=== PATIENT | female | born 1955 | race Caucasian/White ===

== ENCOUNTER 2019-03-21 12:51 | Inpatient (IN) | payer OTHER ==
[2019-03-21] MEDS ORDERED: Aspirin 81 mg CHEW TAB* 81 MG TAB.CHEW PO ONE (13:19)
--- NOTE | 2019-03-21 13:22 | ED ---
Dizziness - HPI Summary HPI Summary: This patient is a 63 year old F presenting to [facility] accompanied by her with a chief complaint of dizziness starting today while walking into [employer] and persisting while sitting up in her car. She states that she has been on Cipro and Flagyl for diverticulitis since 03/18/19. She reported feeling better until this episode occurred. She reports feeling anxious, nauseous, having chest pressure and feeling diaphoretic. She stated that while she was in the car her brought her a BP cuff and her BP was 90/60. She denies SOB, vomiting, diarrhea. She reports that lying down has helped to alleviate her lightheadedness and her CP. At the time of my evaluation, pt without any chest pain, no dizziness - states feels "much better lying down." Standing aggravates her symptoms. No cardiac hx except had svt ablation at [facility] many years ago. Pt had stress at this time as well. She currently lives with her and is retired. Patients medication reviewed this visit. 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 Negative: Vomiting, Diarrhea, SOB - Allergies/Home Medications Allergies/Adverse Reactions: Allergies Allergy/AdvReac Type Severity Reaction Status Date / Time Penicillins Allergy Intermediate Rash Verified 03/21/19 14:31 Home Medications: Home Medications Calcium Carbonate/Vitamin D3 [Calcium 500 + Vit D Caplet] 2 tab PO DAILY [History Confirmed 03/21/19] PMH/Surg Hx/FS Hx/Imm Hx Previously Healthy: Yes Endocrine/Hematology History: Denies: Hx Diabetes, Hx Thyroid Disease Cardiovascular History: Reports: Hx Hypertension, Hx Supraventricular Ventricular Tachycardia - s/p ablation Respiratory History: Denies: Hx Asthma, Hx Chronic Obstructive Pulmonary Disease (COPD) GI History: Denies: Hx Ulcer Musculoskeletal History: Denies: Hx Rheumatoid Arthritis, Hx Osteoporosis - OSTEOPENIA Psychiatric History: Reports: Hx Anxiety - Surgical History Surgical History: Yes Surgery Procedure, Year, and Place: Cardiac ablation for SVT 2000 Infectious Disease History: No Infectious Disease History: Denies: Hx Hepatitis, Hx Human Immunodeficiency Virus (HIV), History Other Infectious Disease, Traveled Outside the [place] in Last 30 Days - Family History Known Family History: Positive: Hypertension - paternal, Non-Contributory Negative: Cardiac Disease, Blood Disorder - Social History Occupation: Retired Lives: With Family - Alcohol Use: Occasionally Hx Substance Use: No Substance Use Type: Reports: None Hx Tobacco Use: No Smoking Status (MU): Never Smoked Tobacco Review of Systems Positive: Skin Diaphoresis Positive: Chest Pain, Other - POSITIVE: low BP at onset Negative: Shortness Of Breath Positive: Nausea. Negative: Vomiting, Diarrhea Neurological: Other - POSITIVE: dizziness aka lightheaded Positive: Anxious All Other Systems Reviewed And Are Negative: Yes Physical Exam - Summary Physical Exam Summary: Vital Signs Reviewed: Yes A+Ox3, no distress Eyes: Conjunctiva Clear, ENT: Hearing grossly normal mmoist, Neck: Positive: Supple Respiratory: Positive: No respiratory distress, No accessory muscle use + CTA throughout no w/r Cardiovascular: RRR nl s1, s2 no m/r CBT <2 sec abd soft + BS nt/nd no guarding, no distension Musculoskeletal Exam: OCONNOR x 4 without difficulty Strength Intact, ROM Intact Neurological: Positive: Alert, + sensation throughout Psychological: Positive: Normal Response To Family Skin: Positive: no rash, no ecchymosis Vital Signs On Initial Exam: Initial Vitals Temp Pulse Resp BP Pulse Ox 97.9 F 66 16 147/84 100 03/21/19 12:56 03/21/19 12:56 03/21/19 12:56 03/21/19 12:56 03/21/19 12:56 Diagnostics - Vital Signs Vital Signs Temp Pulse Resp BP Pulse Ox 03/21/19 12:56 97.9 F 66 16 147/84 100 - Laboratory Result Diagrams: 03/21/19 13:17 03/22/19 04:35 Lab Statement: Any lab studies that have been ordered have been reviewed, and results considered in the medical decision making process. - EKG 1258 Cardiac Rate: NL - 63 BPM EKG Rhythm: Sinus Rhythm Summary of EKG Findings: normal sinus rhythm at a rate of 63 BPM with inverted T waves in leads v3-v6 and inferior. Interpreted by Dr. Ferrer 1300 03/21/19. 1401 Cardiac Rate: NL - 56 BPM EKG Rhythm: Sinus Rhythm Summary of EKG Findings: Repeat EKG shows sinus rhythm with a rate of 56 BPM and slightly inverted QT waves with inverted T waves in V3-V6 and inferior. interpreted b Dr. Ferrer 1405 03/21/19. Re-Evaluation - Re-Evaluation First Eval Comment: Pt in room 15 at bedside. states no dizziness, chest "tingling" anterior, no radiation, no diaphoresis feeling anxious. elevated trop. will d/wdr alida mena. repeat EKG Second Eval Re-Evaluation Time: 14:12 Change: Unchanged Comment: Dr. Mena is at the bedside. repeated EKG withdeeper T waves. QTC slight increased - will give magnesium. will add on Mag Fourth Eval Comment: Pain improved with ntg. will go to Cath - Dr. 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 Pt states at present, lying supine feels well without chest discomfort. Pt without cardiac dx, + h/o HTN. Pt does report beig on cipro and flagyl for diverticulitis since Thu. on exam, slightly elevated bp - h/o same. non cocnering exam. EKg with deep inverted T wave inferionr V3-V5. will give ASA. pt closely monitor on tele. anticipate cards consult and admission - Diagnoses Provider Diagnoses: Non-STEMI (non-ST elevated myocardial infarction) - Provider Notifications Discussed Care Of Patient With: Carolina Salgado Time Discussed With Above Provider: 14:45 Instructed by Provider To: Admit As Inpatient Admit/Transition Orders Completed By ED Provider: Yes - Critical Care Time Critical Care Time: 30-74 min - 45 minutes Discharge - Sign-Out/Discharge Documenting (check all that apply): Patient Departure - admitted Patient Received Moderate/Deep Sedation with Procedure: No - Discharge Plan Condition: Guarded Disposition: ADMITTED TO [facility] - Billing Disposition and Condition Condition: GUARDED Disposition: Admitted to [facility] - Attestation Statements Document Initiated by Scribe: Yes Documenting Scribe: Matias Reynolds Provider For Whom Scribe is Documenting (Include Credential): Reena Ferrer MD Scribe Attestation: I, Matias Reynolds, scribed for Reena Ferrer MD on 03/24/19 at 1030. Scribe Documentation Reviewed: Yes Provider Attestation: The documentation as recorded by the scribe, Matias Reynolds accurately reflects the service I personally performed and the decisions made by me, Reena Ferrer MD Status of Scribe Document: Viewed Consult Consult: Consulted with Dr. Mena, Curriculum Development Manager, at 1357 about the plan of care and treatment of the pt. He will come to evaluate the pt for possible [place] [facility] [place] 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
[2019-03-21 13:31] LABS: ABS Basophils 0.1 10^3/ul (0-0.2); ABS Eosinophils 0.1 10^3/ul (0-0.6); ABS Lymphocytes 2.6 10^3/ul (1.0-4.8); ABS Monocytes 0.6 10^3/ul (0-0.8); Eosinophil % 1.9 %; Hematocrit 38 % (35-47); Hemoglobin 12.9 g/dL (12.0-16.0); Lymphocyte % 40.5 %; Mean Corpuscular HGB Conc 34 g/dL (31-36); Mean Corpuscular Hemoglobin 30 pg (27-31); Mean Corpuscular Volume 89 fL (80-97); Mean Platelet Volume 8.2 fL (7.4-10.4); Platelet Count 313 10^3/uL (150-450); Red Blood Count 4.26 10^6 /uL (3.70-4.87); Red Cell Distribution Width 12 % (10-15); White Blood Count 6.5 10^3/uL (3.5-10.8)
[2019-03-21] MEDS ORDERED: Nitroglycerin TAB 0.4 MG* 0.4 MG TAB ONE (13:45)
[2019-03-21] MEDS ORDERED: NS 0.9% 1000 ML** 1,000 ML IV ONE (13:46)
[2019-03-21] MEDS ORDERED: Nitroglycerin TAB 0.4 MG* 0.4 MG TAB SL ONE (13:46)
[2019-03-21 13:49] LABS: INR 1.21 (0.82-1.09)
[2019-03-21 13:50] LABS: ALT 11 U/L (7-52); AST 24 U/L (13-39); Albumin 4.1 g/dL (3.2-5.2); Albumin/Globulin Ratio 1.4 (1-3); Alkaline Phosphatase 67 U/L (34-104); Anion Gap 11 mmol/L (2-11); BUN/Creatinine Ratio 17.8 (8-20); Blood Urea Nitrogen 16 mg/dL (6-24); CO2 Carbon Dioxide 23 mmol/L (22-32); Calcium 9.6 mg/dL (8.6-10.3); Chloride 103 mmol/L (101-111); Creatine Kinase 106 U/L (10-223); EGFR African American 76.3 (>60); Globulin 2.9 g/dL (2-4); Glucose 103 mg/dL (70-100); Potassium 3.8 mmol/L (3.5-5.0); Sodium 137 mmol/L (135-145)
[2019-03-21 13:52] LABS: Troponin I 1.14 ng/mL (<0.04)
[2019-03-21 13:56] LABS: CKMB ng/mL 9.4 ng/mL (0.6-6.3)
[2019-03-21] MEDS ORDERED: Magnesium Sulfate 2 GM IV* 2 GM/50 ML BAG IVPB ONE (14:09)
[2019-03-21] MEDS ORDERED: Magnesium Sulfate 2 GM IV* 2 GM/50 ML BAG ONE (14:10)
[2019-03-21] MEDS ORDERED: Heparin VIAL(*) 5000 UNITS/ML VIAL (FIVE THOUSAND) IV PRN (14:12)
[2019-03-21] MEDS ORDERED: Heparin DRIP 25,000 UNITS(*) 25,000 UNITS/500 ML BAG IV SCH (14:15)
[2019-03-21] MEDS ORDERED: Diazepam TAB(*) 5 MG PO PRN (14:20)
[2019-03-21 14:21] LABS: Activated Partial Thrombo Time 37.7 seconds (26.0-38.0)
[2019-03-21] MEDS ORDERED: Ticagrelor* 90 MG TAB PO ONE ×2 (14:26→14:29)
[2019-03-21 14:28] LABS: Magnesium 1.7 mg/dL (1.9-2.7)
[2019-03-21] MEDS ORDERED: VERAPAMIL 2.5 MG/ML 2 ML VIAL ** 5 mg/2 ml ONE (14:33)
[2019-03-21] MEDS ORDERED: Heparin(*) 1000 UNIT/ML 10 ML VIAL CATH LAB IV ONE (14:33)
[2019-03-21] MEDS ORDERED: nitroGLYCERIN DRIP* 25,000 MCG/250 ML BTL ONE (14:33)
[2019-03-21] MEDS ORDERED: Iohexol 350 (CONTRAST) 200 ML MDV IV ONE ×2 (14:34)
[2019-03-21] MEDS ORDERED: Lidocaine 1% INJ* 10 MG/ML 30 ML SDV ONE (14:34)
[2019-03-21] MEDS ORDERED: Heparin 2 UNITS/ML IVPREMIX* 3,000 UNIT/1,500 ML BAG IV ONE (14:34)
[2019-03-21] MEDS ORDERED: fentaNYL* 50 MCG/ML 2 ML VIAL (100 MCG VIAL) ONE (14:58)
[2019-03-21] MEDS ORDERED: Midazolam* 1 MG/ML 5 ML VIAL (5 MG) ONE (14:58)
[2019-03-21] MEDS ORDERED: Ondansetron INJ* 2 MG/ML VIAL IV PRN (15:46)
[2019-03-21] MEDS ORDERED: Acetaminophen TAB* 325 MG PO PRN (15:46)
[2019-03-21] MEDS ORDERED: Nitroglycerin TAB 0.4 MG* 0.4 MG TAB SL PRN (15:46)
--- NOTE | 2019-03-21 15:49 | CONS ---
CARDIOLOGY CONSULTATION: DATE OF CONSULT: 03/21/19 INDICATION FOR CONSULTATION: NSTEMI, chest pain. HISTORY OF PRESENT ILLNESS: The patient is a 63-year-old woman with a history of hypertension who came to the emergency room because of chest pain and nausea. The patient was recently at [facility] last week with a diagnosis of diverticulitis. She was there with diarrhea and abdominal pain. No fevers. No blood in the stool. She was treated with antibiotics, was feeling quite well yesterday. Today, she was out with her at [facility] and suddenly felt weak and diaphoretic. She also had some degree of chest pain. At that time, they had a blood pressure cuff, her blood pressure was 90/ 50 and they came to the emergency room. On arrival to the emergency room, the patient was still complaining of her chest discomfort. She was given some sublingual nitroglycerin with improvement of her symptoms. Her initial troponin level was 1.14. Her initial EKG shows normal sinus rhythm with diffuse T-wave inversions in V2 through V6. A quick echocardiogram showed akinesis of the distal anterior wall. The patient has continued to have chest pain despite the nitroglycerin. She was started on heparin. The patient will proceed to cardiac catheterization. PAST MEDICAL HISTORY: Significant for hypertension. Recent diagnosis of diverticulitis as described above. PAST SURGICAL HISTORY: None. OUTPATIENT MEDICATIONS: Lisinopril as well as recent antibiotics of metronidazole and Cipro. ALLERGIES: PENICILLIN. FAMILY HISTORY: Could not be obtained as this is an urgent situation. SOCIAL HISTORY: Could not be obtained as this is an urgent situation. REVIEW OF SYSTEMS: Negative for fever and chills. Negative for changes in bowel and bladder, actually improvement in her bowels after her recent hospitalization. No change in weight. Other 12-point review is unremarkable. PHYSICAL EXAM: Height is 5 feet 6 inches, weight is 160 pounds. Temperature 97.9, heart rate is 60, blood pressure 115/74, respiratory rate is 20, oxygen saturation is 96% on room air. Sclerae anicteric. Oropharynx is pink without erythema. Carotids are 2+ without bruits. JVD is normal. Thyroid is normal. Cardiac Exam: S1, S2 without any murmurs, rubs, or gallops. Lungs are clear to auscultation. Abdomen is mildly tender. Normoactive bowel sounds. No hepatosplenomegaly. Extremities show no edema. She has 2+ pulses throughout. The patient is awake, alert, and oriented. She moves all 4 extremities equally. DIAGNOSTIC STUDIES/LAB DATA: CBC within normal limits. Chemistries within normal limits. BUN 16, creatinine 0.9. AST and ALT are normal. Troponin is 1.14. Echocardiogram: Brief echocardiogram as described above. IMPRESSION: This is a 63-year-old female with a recent episode of diverticulitis requiring antibiotics who came to the emergency room with nausea , chest pain, and diffuse EKG changes compared to 2008. Her initial echocardiogram shows severe akinesis to the distal anterior wall. The patient is diagnosed with acute coronary syndrome and [id number] myocardial infarction. RECOMMENDATIONS: The patient will be on heparin, aspirin, and Brilinta. The patient will be taken to the label sewer for further diagnosis. The risks and benefits of this were described in great detail and patient is willing to proceed. [id number]/CPS #: [id number] MTDD
[2019-03-21] MEDS ORDERED: NS 0.9% 1000 ML** 1,000 ML IV SCH (16:00)
--- NOTE | 2019-03-21 16:28 | ECHO ---
*[facility]* [place] [address] Fax #: [phone] Transthoracic Echocardiogram Patient: Kobe, Height: 66 in / Yudith Mackey 167.6 cm : 1955 Weight: 159.7 lb / Study Date: 03/21/2019 72.6 kg Age: 63 BP: 128 / 93 Gender: F BMI/BSA: 25.8 kg/m^2 HR: 67 bpm / 1.82 m^2 *Concrete Mason: * Denise Larios [facility] *Referring Physician: * Jarad Mena MD *Reading Physician: * Jarad Mena MD Indications: Chest Pain, unspecified. History: Supraventricular tachycardia. Risk factors: Hypertension. Conclusions Summary: 1. Left ventricle: Systolic function is mildly to moderately reduced. The estimated ejection fraction is 40-45%. See wall motion abnormalities below. 2. Right ventricle: Systolic function is normal. Systolic pressure is mildly increased. 3. Mitral valve: There is trace regurgitation. 4. Aortic valve: There is no significant regurgitation. 5. Tricuspid valve: There is moderate regurgitation. 6. Pericardium, extracardiac: There is no significant pericardial effusion. 7. Pulmonary arteries: Systolic pressure is mildly increased. 8. Study data: No prior study is available for comparison. Study data: Transthoracic echocardiogram. Procedure: Transthoracic echocardiography was performed. Image quality was good. Complete 2D, spectral Doppler, and color flow Doppler. Location: Emergency department. Patient status: Inpatient. Patient room number: 15. No prior study is available for comparison. Study status: RAMO. Rhythm: Normal sinus rhythm. Findings Left ventricle: The cavity size is normal. Wall thickness is normal. Systolic function is mildly to moderately reduced. The estimated ejection fraction is 40-45%. Regional wall motion abnormalities: Hypokinesis of the apicalanteroseptal myocardium. Hypokinesis of the apicalinferoseptal myocardium. Hypokinesis of distal posterior myocardium. Hypokinesis of the apicallateral myocardium. Severe hypokinesis of the apical anterior and apical myocardium; moderate hypokinesis of the mid anteroseptal, apical inferior, apical septal, and apical lateral myocardium. Doppler parameters appear abnormal. Right ventricle: The cavity size is normal. Systolic function is normal. Systolic pressure is mildly increased. Left atrium: The atrium is mildly dilated. Right atrium: The atrium is normal in size. Mitral valve: The leaflets are mildly thickened. There is no evidence of stenosis. There is trace regurgitation. Aortic valve: The valve is trileaflet. There is no significant regurgitation. Tricuspid valve: The leaflets are normal thickness. There is no evidence of stenosis. There is moderate regurgitation. Pulmonic valve: The leaflets are normal thickness. There is no evidence of stenosis. There is mild regurgitation. Aorta: Aortic arch: The aortic arch is appears normal. The aortic root is not dilated. Pericardium: There is no significant pericardial effusion. Pulmonary arteries: The main pulmonary artery is normal-sized. Systolic pressure is mildly increased. Systemic veins: Inferior vena cava: The vessel is normal in size. The respirophasic diameter changes are in the normal range (>= 50%). Measurements Left ventricle Value Ref Aortic valve Value Ref ADRIAN, LAX 4.8 cm 3.8 - 5.2 Ericka diam, ED 2.0 cm ----- ESD, LAX 2.9 cm 2.2 - 3.5 Peak v, S 0.96 m/sec ----- FS, LAX 39 % 27 - 45 VTI, S 24.4 cm ----- PW, ED, LAX (H) 1.0 cm 0.6 - 0.9 Mean grad, S 2.0 mm Hg ----- EF 70 % 54 - 74 Peak grad, S 4.0 mm Hg ----- E', lat ericka, TDI (L) 3.7 cm/sec >=10.0 E/e', lat ericka, 20 Mitral valve Value Ref TDI Peak E 0.75 m/sec ----- E', med ericka, TDI (L) 5.3 cm/sec >=7.0 Peak A 0.67 m/sec --- -- E/e', med ericka, 14 Decel time 164 ms ----- TDI Peak grad, D 2.3 mm Hg ----- E', avg, TDI 4.5 cm/sec Peak E/A ratio 1.1 ----- E/e', avg, TDI (H) 17 <=14 Pulmonic valve Value Ref LVOT Value Ref Peak v, S 0.54 m/sec ----- Peak nas, S 0.63 m/sec Peak grad, S 1.0 mm Hg ----- Mean grad, S 1 mm Hg Tricuspid valve Value Ref Ventricular septum Value Ref TR peak v (H) 2.9 m/sec <=2.8 IVS, ED 0.9 cm 0.6 - 0.9 Peak RV-RA grad, S 34 mm Hg ----- Right ventricle Value Ref Aortic root Value Ref ADRIAN, LAX 1.7 cm Root diam 3.2 cm <4.0 ADRIAN minor ax, A4C 3.0 cm 1.9 - 3.5 mid Aortic arch Value Ref Pressure, S 37 mm Hg Arch diam 2.9 cm ----- Left atrium Value Ref Decending aorta Value Ref AP dim, ES 2.80 cm 2.70 - Manoj peak nas 0.46 m/sec ----- 3.80 ML dim, A4C 4.6 cm Pulmonary artery Value Ref SI dim, A4C 5.6 cm Pressure, S 36.0 mm Hg ----- Vol/bsa, ES, A/L (H) 36 ml/m^2 16 - 34 Inferior vena cava Value Ref Right atrium Value Ref Diam 2.0 cm ----- SI dim, ES 5.2 cm 3.4 - 5.3 ML dim, ES, A4C 3.7 cm 2.6 - 4.4 Estimated RAP 3 mm Hg Legend: (L) and (H) haseeb values outside specified reference range. Prepared and electronically signed by Jarad Mena MD 03/21/2019 16:28
[2019-03-21 16:38] LABS: Cholesterol 212 mg/dL; LDL Cholesterol 115 mg/dL; Triglycerides 92 mg/dL
[2019-03-21] MEDS ORDERED: Atorvastatin* 80 MG TAB PO SCH (17:00)
[2019-03-21 17:05] LABS: Creatine Kinase 152 U/L (10-223)
[2019-03-21 17:11] LABS: CKMB ng/mL 19.2 ng/mL (0.6-6.3)
[2019-03-21 17:12] LABS: Troponin I 2.24 ng/mL (<0.04)
[2019-03-21] MEDS: Captopril TAB* 12.5 MG PO SCH ×2 (17:52→20:37)
[2019-03-21] MEDS: Propranolol TAB* 10 MG PO SCH (20:37)
[2019-03-21] MEDS: Ticagrelor* 90 MG TAB PO SCH (20:37)
--- NOTE | 2019-03-21 21:28 | CATH ---
CATH REPORT: DATE OF PROCEDURE: 03/21/19 - ROOM #[id number] PROCEDURES: Right radial artery access with ultrasound guidance, bilateral selective coronary cineangiography, left heart catheterization, left ventriculography. HISTORY: A 63-year-old woman presenting with severe precordial burning chest pain with new precordial and inferior T-wave inversion without ST elevation, and low level troponin elevation, all consistent with ACS with non-ST elevation infarct or takotsubo syndrome. PROCEDURE ACCESS: Right radial artery sheath 6F slender. MEDICATIONS: 1. Subcu lidocaine. 2. IV Versed. 3. IV fentanyl. 4. Heparin 300 mcg. 5. Verapamil 3 mg IA. No additional heparin as she received 4000 units in the ER. DIAGNOSTIC CATHETER: 5F TIG4, 5F pigtail. HEMODYNAMICS: Initial AO: 105/64. LV post coronary angiography, 111/51-22, no aortic valve gradient on pullback. ANGIOGRAPHY: Left main: The left main is smooth, normal in size, has no stenosis. LAD: The LAD is moderate to large, extends to the apex, it has WILBERT-3 flow, supplies a large mid to diagonal. There is no angiographic evidence of stenosis , plaque rupture or thrombus. There is no myocardial bridging. Circumflex: The circumflex is large, not dominant, with a large bifurcated ramus, and ends with two moderate to small posterolaterals. The circumflex has no stenosis. RCA: The RCA is dominant, smooth, large, with a moderate PDA and posterolateral , the RCA has minimal irregularity at the acute margin, has no stenosis. LV Gram: There is akinesis of the distal half of the anterolateral wall, apex and inferoapical segments all consistent with takotsubo's, estimated LVEF 40%. CONCLUSION: 1. No obstructive coronary artery disease. 2. LV systolic dysfunction as above. 3. Elevated LVDP. 4. Successful right radial artery access. 5. Takotsubo's cardiomyopathy. [id number]/[facility] #: [id number]
[2019-03-21 22:13] LABS: Creatine Kinase 131 U/L (10-223)
[2019-03-21 22:18] LABS: CKMB ng/mL 14.5 ng/mL (0.6-6.3)
[2019-03-21 22:22] LABS: Troponin I 1.57 ng/mL (<0.04)
[2019-03-22 05:00] LABS: Creatine Kinase 124 U/L (10-223)
[2019-03-22 05:08] LABS: Troponin I 0.96 ng/mL (<0.04)
[2019-03-22] MEDS: Ticagrelor* 90 MG TAB PO SCH (08:49)
[2019-03-22] MEDS: Propranolol TAB* 10 MG PO SCH ×2 (08:49→21:06)
[2019-03-22] MEDS: Lisinopril TAB* 5 MG PO SCH (08:55)
[2019-03-22] MEDS ORDERED: Aspirin 81 mg CHEW TAB* 81 MG TAB.CHEW PO SCH (09:00)
[2019-03-22] MEDS ORDERED: Lisinopril TAB* 5 MG PO SCH (09:00)
[2019-03-22 09:32] LABS: INR 1.26 (0.82-1.09)
--- NOTE | 2019-03-22 10:05 | PN ---
<Gely Grant - Last Filed: 03/22/19 10:44> Subjective Date of Service: 03/22/19 - Takotsubo Cardiomyopathy, troponin elevation Interval History: Patient states she did not sleep well last night due to alarms, she adds she was anxious. She does admit to intermittent c/o chest pain described as a " wave of burning" she states episodes have been intermittent and last anywhere from 1-10 minutes. Last episode was prior to walking into her room. No c/o shortness of breath, dizziness or lightheadedness/palpitations. Medications Active Medications: Acetaminophen (Tylenol Tab*) 650 mg PO Q4H PRN PRN Reason: HEADACHE/PAIN Last Admin: 03/22/19 01:47 Dose: 650 mg Aspirin (Aspirin 81 Mg Chew Tab*) 81 mg PO DAILY [facility] Last Admin: 03/22/19 08:50 Dose: 81 mg Atorvastatin Calcium (Lipitor*) 40 mg PO 1700 [facility] Diazepam (Valium Tab(*)) 5 mg PO ONCE PRN PRN Reason: score caller to [facility] Heparin Sodium (Porcine) (Heparin Vial(*)) 0 units IV .FOR BOLUSES PRN PRN Reason: HEPARIN DRIP BOLUSES Last Admin: 03/21/19 14:28 Dose: 4,000 units Lisinopril (Prinivil Tab*) 2.5 mg PO DAILY [facility] Last Admin: 03/22/19 08:55 Dose: 2.5 mg Nitroglycerin (Nitroglycerin Tab 0.4 Mg*) 0.4 mg SL Q5M PRN PRN Reason: ANGINA Ondansetron HCl (Zofran Inj*) 4 mg IV Q4H PRN PRN Reason: NAUSEA Propranolol HCl (Inderal Tab*) 10 mg PO BID [facility] Last Admin: 03/22/19 08:49 Dose: 10 mg Ticagrelor (Brilinta*) 90 mg PO BID [facility] Last Admin: 03/22/19 08:49 Dose: 90 mg Objective Vital Signs: Temp Pulse Resp BP Pulse Ox 98.3 F 71 25 118/80 97 03/22/19 07:51 03/22/19 08:00 03/22/19 08:00 03/22/19 08:00 03/22/19 08:00 Oxygen Devices in Use Now: None Appearance: well nourished, A+O x3, cooperative with exam, NAD her is at her bedside. Eyes: No Scleral Icterus Ears/Nose/Mouth/Throat: NL Teeth, Lips, Gums, Clear Oropharnyx, Mucous Membranes Moist Neck: NL Appearance and Movements; NL JVP Respiratory: Symmetrical Chest Expansion and Respiratory Effort, Clear to Auscultation Cardiovascular: NL Sounds; No Murmurs; No JVD, No Edema Abdominal: NL Sounds; No Tenderness; No Distention Skin: No Rash or Ulcers Neurological: Alert and Oriented x 3 Lines/Tubes/Other Access: Clean, Dry and Intact PICC Line Laboratory Results: 03/21/19 13:17 03/21/19 13:17 INR (Anticoag Therapy) 1.26 (0.82-1.09) H 03/22/19 08:50 APTT 37.7 seconds (26.0-38.0) 03/21/19 13:17 Total Bilirubin 0.40 mg/dL (0.2-1.0) 03/21/19 13:17 AST 24 U/L (13-39) 03/21/19 13:17 ALT 11 U/L (7-52) 03/21/19 13:17 Alkaline Phosphatase 67 U/L (34-104) 03/21/19 13:17 CK-MB (CK-2) 12.0 ng/mL (0.6-6.3) H 03/22/19 04:35 Total Protein 7.0 g/dL (6.4-8.9) 03/21/19 13:17 Albumin 4.1 g/dL (3.2-5.2) 03/21/19 13:17 Globulin 2.9 g/dL (2-4) 03/21/19 13:17 Albumin/Globulin Ratio 1.4 (1-3) 03/21/19 13:17 Triglycerides 92 mg/dL 03/21/19 13:17 Cholesterol 212 mg/dL 03/21/19 13:17 LDL Cholesterol 115 mg/dL 03/21/19 13:17 HDL Cholesterol 79.0 mg/dL 03/21/19 13:17 03/21/19 03/21/19 03/21/19 13:17 16:30 21:47 Troponin I 1.14 H* 2.24 H* 1.57 H* 03/22/19 04:35 Troponin I 0.96 H* Laboratory Results - last 24 hr 03/21/19 03/21/19 03/21/19 13:17 13:17 13:17 WBC 6.5 RBC 4.26 Hgb 12.9 Hct 38 MCV 89 MCH 30 MCHC 34 RDW 12 Plt Count 313 MPV 8.2 Neut % (Auto) 46.6 Lymph % (Auto) 40.5 Mcdonald % (Auto) 9.9 Eos % (Auto) 1.9 Baso % (Auto) 1.1 Absolute Neuts (auto) 3.0 Absolute Lymphs (auto) 2.6 Absolute Monos (auto) 0.6 Absolute Eos (auto) 0.1 Absolute Basos (auto) 0.1 Absolute Nucleated RBC 0.0 Nucleated RBC % 0.0 INR (Anticoag Therapy) 1.21 H APTT 37.7 Sodium 137 Potassium 3.8 Chloride 103 Carbon Dioxide 23 Anion Gap 11 BUN 16 Creatinine 0.90 Est GFR ( Amer) 76.3 Est GFR (Non-Af Amer) 63.0 BUN/Creatinine Ratio 17.8 Glucose 103 H Calcium 9.6 Magnesium 1.7 L Total Bilirubin 0.40 AST 24 ALT 11 Alkaline Phosphatase 67 Total Creatine Kinase 106 CK-MB (CK-2) 9.4 H Troponin I 1.14 H* Total Protein 7.0 Albumin 4.1 Globulin 2.9 Albumin/Globulin Ratio 1.4 Triglycerides 92 Cholesterol 212 LDL Cholesterol 115 HDL Cholesterol 79.0 03/21/19 03/21/19 03/22/19 16:30 21:47 04:35 WBC RBC Hgb Hct MCV MCH MCHC RDW Plt Count MPV Neut % (Auto) Lymph % (Auto) Mcdonald % (Auto) Eos % (Auto) Baso % (Auto) Absolute Neuts (auto) Absolute Lymphs (auto) Absolute Monos (auto) Absolute Eos (auto) Absolute Basos (auto) Absolute Nucleated RBC Nucleated RBC % INR (Anticoag Therapy) APTT Sodium Potassium Chloride Carbon Dioxide Anion Gap BUN Creatinine Est GFR ( Amer) Est GFR (Non-Af Amer) BUN/Creatinine Ratio Glucose Calcium Magnesium Total Bilirubin AST ALT Alkaline Phosphatase Total Creatine Kinase 152 131 124 CK-MB (CK-2) 19.2 H 14.5 H 12.0 H Troponin I 2.24 H* 1.57 H* 0.96 H* Total Protein Albumin Globulin Albumin/Globulin Ratio Triglycerides Cholesterol LDL Cholesterol HDL Cholesterol 03/22/19 08:50 WBC RBC Hgb Hct MCV MCH MCHC RDW Plt Count MPV Neut % (Auto) Lymph % (Auto) Mcdonald % (Auto) Eos % (Auto) Baso % (Auto) Absolute Neuts (auto) Absolute Lymphs (auto) Absolute Monos (auto) Absolute Eos (auto) Absolute Basos (auto) Absolute Nucleated RBC Nucleated RBC % INR (Anticoag Therapy) 1.26 H APTT Sodium Potassium Chloride Carbon Dioxide Anion Gap BUN Creatinine Est GFR ( Amer) Est GFR (Non-Af Amer) BUN/Creatinine Ratio Glucose Calcium Magnesium Total Bilirubin AST ALT Alkaline Phosphatase Total Creatine Kinase CK-MB (CK-2) Troponin I Total Protein Albumin Globulin Albumin/Globulin Ratio Triglycerides Cholesterol LDL Cholesterol HDL Cholesterol Diagnostic Imaging: *[facility] [place] [address] Fax #: [phone] Transthoracic Echocardiogram Patient: Kobe, Height: 66 in / Yudith J 167.6 cm : 1955 Weight: 159.7 lb / Study Date: 03/21/2019 72.6 kg Age: 63 BP: 128 / 93 Gender: F BMI/BSA: 25.8 kg/m^2 HR: 67 bpm / 1.82 m^2 *Motorcycle Sales Associate: * Denise Larios RD RDMS *Referring Physician: * Jarad Mena MD *Reading Physician: * Jarad Mena MD Indications: Chest Pain, unspecified. History: Supraventricular tachycardia. Risk factors: Hypertension. Conclusions Summary: 1. Left ventricle: Systolic function is mildly to moderately reduced. The estimated ejection fraction is 40-45%. See wall motion abnormalities below. 2. Right ventricle: Systolic function is normal. Systolic pressure is mildly increased. 3. Mitral valve: There is trace regurgitation. 4. Aortic valve: There is no significant regurgitation. 5. Tricuspid valve: There is moderate regurgitation. 6. Pericardium, extracardiac: There is no significant pericardial effusion. 7. Pulmonary arteries: Systolic pressure is mildly increased. 8. Study data: No prior study is available for comparison. This report is only to be considered final once signed by the Provider(s) as displayed in the "<Electronically Signed by >" field (s). Absence of a signature indicates the report is in a draft status and still needs to be finalized. In the event this document was created by someone other than the signing Provider, the individual initiating the document will be listed in the "Entered by:" or "Dictated by:" badillo. Cardiac Catheterization Report YUDITH WINSLOW [id number] 03/21/19 Per proceedure note performed by Dr. Salgado. LV Gram: There is akinesis of the distal half of the anterolateral wall, apex and inferoapical segments all consistent with takotsubo's, estimated LVEF 40%. CONCLUSION: 1. No obstructive coronary artery disease. 2. LV systolic dysfunction as above. 3. Elevated LVDP. 4. Successful right radial artery access. 5. Takotsubo's cardiomyopathy. EKG Data: 03/22/2019; Sinus rhythm rate 60 diffuse TW inversion comparable to prior ECG. Telemetry; Sinus rhythm rate 60's with occasional PVC's.No VT. Assessment/Plan #1 C/o Chest pain, Dizziness. Troponin peaked at 2.24 on 03/21/2019. Given abnormal EKG findings and presentation she was taken to yard laborer. Per report there was no evidence of obstructive CAD. LVEF 40%. + apical ballooning consistent with Takotosubo cardiomyopathy. She is on Propanolol 10mg Po BID, Captopril transitioned to Lisinopril 2.5mg/day. She reports historically being on Lisinopril 5mg/day. Will monitor on current therapy. Stop DAPT. She has had recurrent chest pain however, troponin is trending down and diffuse TW inversion is consistant with prior ECG. Will continue to monitor on telemetry. 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 Will r/o pheochromocytoma. Urine testing is a send out test. #2 h/o HTN historically in Lisinopril and Propanolol. Currently patient is normotensive. #3 Recent Diverticulitis 03/18/2019. I spoke with the patient's pharmacy [facility] [employer]. She was prescribed Cipro 500mg PO BID x10 days and Flagyl 500mg PO TID on 03/19/2019 with stop date being 03/29/2019. Will resume medications. No recurrent c/o abdominal pain or diarrhea since treatment was started per patient. #4 h/o PVC's; Patient has had occasional PVC on telemetry, no VT. On bblocker therapy #5 Disposition pending course. Will transfer patient to telemetry. Resume Cipro and Flagyl for recent diverticulitis. I spoke with Dr. Salgado who would like to observe patient another day and who agrees with plan of care. Attending: Carolina Salgado <Carolina Salgado - Last Filed: 03/22/19 14:09> Subjective Interval History: THIS pM NO CHEST PAIN/BURNING; FEELS GOOD. wALKED IN [place] W/O problem. reviewed tele 72 hrs . Medications Active Medications: Acetaminophen (Tylenol Tab*) 650 mg PO Q4H PRN PRN Reason: HEADACHE/PAIN Last Admin: 03/22/19 01:47 Dose: 650 mg Atorvastatin Calcium (Lipitor*) 40 mg PO 1700 [facility] Ciprofloxacin (Cipro Tab*) 500 mg PO Q12HR [facility]; Protocol Stop: 03/29/19 23:59 Diazepam (Valium Tab(*)) 5 mg PO ONCE PRN PRN Reason: score caller to [facility] Lisinopril (Prinivil Tab*) 2.5 mg PO DAILY [facility] Last Admin: 03/22/19 08:55 Dose: 2.5 mg Metronidazole (Flagyl) 500 mg PO Q8H [facility] Stop: 03/29/19 23:59 Last Admin: 03/22/19 11:12 Dose: 500 mg Nitroglycerin (Nitroglycerin Tab 0.4 Mg*) 0.4 mg SL Q5M PRN PRN Reason: ANGINA Ondansetron HCl (Zofran Inj*) 4 mg IV Q4H PRN PRN Reason: NAUSEA Propranolol HCl (Inderal Tab*) 10 mg PO BID [facility] Last Admin: 03/22/19 08:49 Dose: 10 mg Objective Vital Signs: Temp Pulse Resp BP Pulse Ox 97.5 F 60 20 115/68 100 03/22/19 12:00 03/22/19 12:00 03/22/19 12:00 03/22/19 12:00 03/22/19 12:00 Laboratory Results: 03/21/19 13:17 03/21/19 13:17 INR (Anticoag Therapy) 1.26 (0.82-1.09) H 03/22/19 08:50 APTT 37.7 seconds (26.0-38.0) 03/21/19 13:17 Total Bilirubin 0.40 mg/dL (0.2-1.0) 03/21/19 13:17 AST 24 U/L (13-39) 03/21/19 13:17 ALT 11 U/L (7-52) 03/21/19 13:17 Alkaline Phosphatase 67 U/L (34-104) 03/21/19 13:17 CK-MB (CK-2) 12.0 ng/mL (0.6-6.3) H 03/22/19 04:35 Total Protein 7.0 g/dL (6.4-8.9) 03/21/19 13:17 Albumin 4.1 g/dL (3.2-5.2) 03/21/19 13:17 Globulin 2.9 g/dL (2-4) 03/21/19 13:17 Albumin/Globulin Ratio 1.4 (1-3) 03/21/19 13:17 Triglycerides 92 mg/dL 03/21/19 13:17 Cholesterol 212 mg/dL 03/21/19 13:17 LDL Cholesterol 115 mg/dL 03/21/19 13:17 HDL Cholesterol 79.0 mg/dL 03/21/19 13:17 03/21/19 03/21/19 03/21/19 13:17 16:30 21:47 Troponin I 1.14 H* 2.24 H* 1.57 H* 03/22/19 04:35 Troponin I 0.96 H*
[2019-03-22] MEDS: metroNIDAZOLE * 500 MG TABLET PO SCH ×2 (11:12→19:44)
[2019-03-22] MEDS: Atorvastatin* 40 MG TAB PO SCH (16:04)
[2019-03-22 20:52] LABS: Anion Gap 10 mmol/L (2-11); BUN/Creatinine Ratio 14.6 (8-20); Blood Urea Nitrogen 12 mg/dL (6-24); CO2 Carbon Dioxide 21 mmol/L (22-32); Calcium 8.7 mg/dL (8.6-10.3); Chloride 108 mmol/L (101-111); EGFR African American 84.9 (>60); EGFR Non-African American 70.2 (>60); Glucose 98 mg/dL (70-100); Potassium 3.8 mmol/L (3.5-5.0); Sodium 139 mmol/L (135-145)
[2019-03-22] MEDS: Ciprofloxacin TAB* 500 MG PO SCH (21:06)
[2019-03-22] MEDS: Simethicone TAB* 80 MG TAB.CHEW PO PRN (21:06)
[2019-03-23] MEDS: metroNIDAZOLE * 500 MG TABLET PO SCH ×3 (03:17→20:13)
[2019-03-23] MEDS ORDERED: Morphine 4 MG/ML VIAL (1 ml) 4 MG/ML VIAL IV PRN (04:56)
[2019-03-23] MEDS: Simethicone TAB* 80 MG TAB.CHEW PO PRN ×2 (05:33→20:15)
[2019-03-23] MEDS: Lisinopril TAB* 5 MG PO SCH (08:09)
[2019-03-23] MEDS: Ciprofloxacin TAB* 500 MG PO SCH ×2 (08:09→20:13)
[2019-03-23] MEDS: Propranolol TAB* 10 MG PO SCH ×2 (08:10→20:13)
[2019-03-23] MEDS: Atorvastatin* 40 MG TAB PO SCH (15:52)
[2019-03-23] MEDS ORDERED: Metoprolol Tartrate TAB* 25 MG PO SCH (21:00)
[2019-03-23] MEDS: Famotidine TAB* 20 MG PO SCH (21:19)
[2019-03-24] MEDS: Simethicone TAB* 80 MG TAB.CHEW PO PRN ×2 (03:13→09:05)
[2019-03-24] MEDS: metroNIDAZOLE * 500 MG TABLET PO SCH ×2 (03:13→11:24)
[2019-03-24] MEDS ORDERED: Metoprolol Tartrate TAB* 25 MG PO SCH (09:00)
[2019-03-24] MEDS: Lisinopril TAB* 5 MG PO SCH (09:03)
[2019-03-24] MEDS: Ciprofloxacin TAB* 500 MG PO SCH (09:04)
[2019-03-24] MEDS: Famotidine TAB* 20 MG PO SCH (09:04)
--- NOTE | 2019-03-24 11:54 | DS ---
AMENDED REPORT NOW INCLUDES DATES OF ADMISSION/DISCHARGE AND DESIGNATED COSIGNER CC: [facility] * DISCHARGE SUMMARY: DATE OF ADMISSION: 03/21/19 DATE OF DISCHARGE: 03/24/19 ATTENDING PHYSICIAN: Carolina Salgado MD, Cardiology.* (DICTATED BY ZOË GUILLEN NP) PRIMARY PHYSICIAN: Historically, no one; however, she will follow up with [facility] on 03/29. PRIMARY AFTERNOON BABYSITTER: Will now be Dr. Jarad Mena. ADMITTING DIAGNOSES: 1. Complaints of chest pain with anterior wall akinesis and troponinemia. 2. Recently diagnosed diverticulitis, on Flagyl and Cipro. 3. History of hypertension. 4. History of atrioventricular elaina reentry tachycardia ablation. 5. History of premature ventricular contractions. DISCHARGE DIAGNOSES: 1. Takotsubo cardiomyopathy, LVEF 40% to 45%; troponin peaked on 03/21/19 at 2.24. Per cardiac cath report on 03/21/19, the patient had no obstructive coronary artery disease with akinesis of the distal half of the anterior wall, apex and inferoapical segments consistent with Takotsubo cardiomyopathy, on Lopressor, lisinopril therapy, and atorvastatin therapy. 2. History of hyperlipidemia, now on Lipitor 40 mg p.o. q.h.s. LDL this admission was 115. The patient will need followup fasting lipid and liver function tests in 6 to 8 weeks' time. 3. History of hypertension. The patient is normotensive on current therapy including lisinopril 2.5 mg a day and Lopressor 12.5 mg p.o. b.i.d. 4. Recent diagnosis of diverticulitis. The patient is on Cipro and Flagyl as directed until 03/29/19. She has medications at home, thus does not need a prescription. PROCEDURES PERFORMED: The patient underwent heart catheterization by Dr. Salgado on 03/21/19. Per procedure report, she had a 6-Turkmen right radial artery sheath catheter placed for access. 1. Left main; the left main is smooth, normal in size, no stenosis. 2. LAD; moderate to large, extends to the apex. WILBERT flow 3. There was no angiographic evidence of stenosis, plaque rupture or thrombus. No myocardial bridging. 3. Left circumflex is large, not dominant with large bifurcated ramus and ends with 2 moderate to small posterolaterals, circumflex has no stenosis. 4. Right coronary artery is dominant, smooth, large with a moderate PDA and posterolateral. The RCA has minimal irregularity at the acute margin and no stenosis. 5. LV gram. There is akinesis of the distal half of the anterior wall, apex and inferoapical segments consistent with Takotsubo cardiomyopathy, LVEF 40%. COMPLICATIONS: None. COURSE OF HOSPITAL STAY: This is a pleasant 63-year-old female patient, who has a history of AVNRT with prior ablation remotely at [facility] , reported PVCs, hypertension, who was recently diagnosed with diverticulitis on 03/18/19 and prescribed Flagyl and Cipro therapy. She presented to [facility] on 03/21/19 according to our medical records due to complaints of chest pain and nausea. She was seen by Dr. Mena due to diffuse T-wave inversions in V2 through V6. Limited echo was updated, which revealed akinesis of the distal anterior wall and she continued to have chest pain despite administration of nitroglycerin and IV heparin therapy, thus she was taken to the sleep lab technologist where she underwent the above- mentioned procedure. Post procedure , was transferred to the ICU. Troponin peaked on 03/21/19 at 2.24 and has continued to trend down. She did have hypomagnesium, which was replaced. Her LDL was 115. Cardiac catheterization per report was consistent with Takotsubo cardiomyopathy. She was started on Lopressor therapy; however, had nocturnal bradycardia, thus dose was reduced to 12.5 mg p.o. b.i.d. Lisinopril was also reduced to 2.5 mg daily due to relatively low systolic blood pressure. Current vital signs: Temperature is 97.8, pulse 70, respirations 21, oxygenation 99% on room air, blood pressure 108/70. There is no morning blood work to review today. She remains in sinus rhythm with occasional VPCs, no VT. Of note, she did have consistent INR elevation during this hospital stay of unknown etiology. She will need a followup with [facility] in the next 7 to 10 days to explore etiology of coagulopathy. Given no obstructive coronary artery disease, she is not being sent home on antiplatelet therapy. LVEF was 40 % to 45%. She is compensated on physical examination. She continued to have complaints of burning sternal chest pain that appeared to be atypical and cardiac enzyme was trending down, thus she was started on Protonix therapy. She reports resolvement of chest pain since medication was initiated. She is stable and will be discharged home today. Medications were faxed to her pharmacy , which is [facility] in [place]. She does not need a prescription for Cipro and Flagyl given it was prescribed on the 03/18/19 for a 10-day course of therapy for recent diverticulosis. She has had no complaints of diarrhea or abdominal pain during this hospital stay. Pending no complications, she will be discharged home later today. She did have urine catecholamine and metanephrine testing, which is currently pending that will need to be followed up in outpatient evaluation. DISCHARGE MEDICATIONS: Includes: 1. Lipitor 40 mg p.o. q.h.s. 2. Cipro 500 mg p.o. b.i.d., end date is 03/29/19. 3. Famotidine 20 mg a day. 4. Lisinopril 2.5 mg a day. 5. Lopressor 12.5 mg p.o. b.i.d. 6. Flagyl 500 mg p.o. q.12 h., end date 03/29/19. 7. Tylenol 650 mg p.o. q.4h., p.r.n. OUTPATIENT BLOOD WORK: She will need a fasting lipid and hepatic function test in 6 to 8 weeks' time. This may be ordered at followup appointment on 03/29/19. Disposition: Home in stable condition. FOLLOWUP APPOINTMENT: 1. The patient is to see Dr. Jarad Mena on 03/29/19 at 2 p.m. at our medical office building. 2. She is to establish primary care with [facility] on 03/29/19 at 9 a.m. We will discuss plan of care with Dr. Carolina Salgado and if agreeable, we will discharge home later today in stable condition. ZOË GUILLEN NP [id number]/[facility] #: [id number]
[2019-03-24 12:06] VITALS: BP 105/66
[2019-03-26 15:37] LABS: Urine Collection Duration 24 h; Urine Total Metanephrines 722 mcg/24 h
== END 2019-03-24 12:45 | disposition home or self-care (01) | DRG 287 ==
LOC: ED 12:51 → CHICATH 14:44 → ICU 16:15 → MEDTELE 03-22 11:46
PROVIDERS: ADMIT Internal Medicine Cardiovascular Disease; ATTEND Internal Medicine Cardiovascular Disease
PROC: B211YZZ Fluoroscopy of Multiple Coronary Arteries using Other Contrast (ICD-10-PCS; 2019-03-21)
PROC: B215YZZ Fluoroscopy of Left Heart using Other Contrast (ICD-10-PCS; 2019-03-21)
PROC: 4A023N7 Measurement of Cardiac Sampling and Pressure, Left Heart, Percutaneous Approach (ICD-10-PCS; principal; 2019-03-21 14:00)
DX: I11.9 Hypertensive heart disease without heart failure (principal); K57.92 Diverticulitis of intestine, part unspecified, without perforation or abscess without bleeding; E83.42 Hypomagnesemia; R13.19 Other dysphagia; R74.9 Abnormal serum enzyme level, unspecified; R07.9 Chest pain, unspecified; E78.5 Hyperlipidemia, unspecified; K21.9 Gastro-esophageal reflux disease without esophagitis; R79.1 Abnormal coagulation profile; Z88.0 Allergy status to penicillin; Z79.899 Other long term (current) drug therapy
CPT/HCPCS: 36415; 80048; 80053; 80061; 81050; 82382; 82550; 82553; 83735; 83835; 84484; 85025; 85610; 85730; 87641; 93005; 93306; 93458; 99156; 99285; A9270-GY; J1644; J2250; J3010; J3475